=== PATIENT | male | born 1980 | race Caucasian/White ===

== ENCOUNTER 2019-04-14 21:09 | Inpatient (IN) | payer MEDICARE, MEDICAID, OTHER ==
[~2019-04-14] VITALS: Ht 193 cm; Wt 85.1 kg
--- NOTE | 2019-04-14 21:24 | NUR ---
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 LAST BM 4 DAYS AGO, HAS BEEN TAKING LAXATIVES FOR PAST 4 DAYS. ATE DINNER TONIGHT. "X" TAYLOR ON PT'S ABD FROM INTERMEDIATE EMT'S MARKING PAIN SITES. [facility] INFECTION PREVENTION SPECIALIST'S PRESENT.
--- NOTE | 2019-04-14 21:26 | NUR ---
DR SEALS BS FOR EXAM. PT HANDCUFFED TO BED (WRISTS AND ANKLES).
[2019-04-14] MEDS ORDERED: ZYPREXA (21:30)
[2019-04-14] MEDS ORDERED: IBUPROFEN (21:30)
[2019-04-14] MEDS ORDERED: TRAZADONE (21:30)
[2019-04-14] MEDS ORDERED: MESALAMINE (21:30)
[2019-04-14] MEDS ORDERED: MORPHINE SULFATE 4 MG/ML, 1ML ONE ×2 (21:51→23:09)
[2019-04-14] MEDS ORDERED: ONDANSETRON 2MG/ML, 2ML ONE (21:51)
[2019-04-14] MEDS ORDERED: FAMOTIDINE 20 MG/2 ML ONE (21:51)
[2019-04-14] MEDS ORDERED: FAMOTIDINE 20 MG/2 ML IV ONE (22:00)
[2019-04-14] MEDS ORDERED: SODIUM CHLORIDE FLUSH 10ML SYR IVF ONE (22:00)
[2019-04-14] MEDS ORDERED: MORPHINE SULFATE 4 MG/ML, 1ML IVPush PRN (22:00)
[2019-04-14] MEDS ORDERED: ONDANSETRON 2MG/ML, 2ML IVPush ONE (22:00)
[2019-04-14 22:03] LABS: BASOPHILS # (AUTO) 0.03 x10^3/uL (0-0.1); BASOPHILS % (AUTO) 0 % (0-1); EOSINOPHILS # (AUTO) 0.25 x10^3/uL (0-0.4); EOSINOPHILS % (AUTO) 3 % (1-7); LYMPHOCYTES # (AUTO) 1.84 x10^3/uL (1-3.4); LYMPHOCYTES % (AUTO) 22 % (22-44); MD NO; MEAN CORPUSCULAR HEMOGLOBIN 32.3 pg (27.5-34.5); MEAN CORPUSCULAR VOLUME 95.2 fL (81-97); MEAN PLATELET VOLUME 7.5 fL (7.4-10.4); MONOCYTES # (AUTO) 0.47 x10^3/uL (0.2-0.8); MONOCYTES % (AUTO) 6 % (2-9); NEUTROPHILS # (AUTO) 5.79 x10^3/uL (1.8-6.8); NEUTROPHILS % (AUTO) 69 % (42-75); PLATELET COUNT 249 x10^3/uL (130-400); RED BLOOD COUNT 4.07 x10^6/uL (4.38-5.82); RED CELL DISTRIBUTION WIDTH 13.9 % (9.4-14.8)
[2019-04-14 22:11] LABS: ALANINE AMINOTRANSFERASE 40 U/L (12-78); ALBUMIN 3.6 g/dL (3.4-5.0); ANION GAP 3 mmol/L (5-15); CALCIUM 8.5 mg/dL (8.5-10.1); CHLORIDE 107 mmol/L (98-107); CREATININE 1.12 mg/dL (0.7-1.3)
[2019-04-14 22:13] LABS: ALKALINE PHOSPHATASE 50 U/L (45-117); BILIRUBIN,TOTAL 0.2 mg/dL (0.2-1.0); TOTAL PROTEIN 6.8 g/dL (6.4-8.2)
[2019-04-14 22:24] LABS: MICROSCOPIC AUTO
[2019-04-14 22:25] LABS: CULTURE INDICATED? YES
[2019-04-14] MEDS ORDERED: OMNIPAQUE 350 MG/ML, 100ML BOTTLE ONE (22:43)
--- NOTE | 2019-04-14 23:08 | NUR ---
DR SELF SPOKE WITH DR SIMS
--- NOTE | 2019-04-14 23:10 | NUR ---
PT CARE TRANSFERRED TO RIGOBERTO CROWLEY.
--- NOTE | 2019-04-14 23:11 | NUR ---
DR SELF SPOKE WITH DR FLORENCE
--- NOTE | 2019-04-14 23:20 | NUR ---
CALLED IN ENDO / SPOKE WITH RHYS
[2019-04-14] MEDS ORDERED: morphine SULFATE 10 MG/ML, 1ML IVPush ONE (23:30)
--- NOTE | 2019-04-14 23:39 | NUR ---
NG TUBE PLACED INTO RIGHT NARE PER DR. SELF ORDER. AUSCULTAION OF AIR BOLUS BUT NO RETURN OF GASTIC ASPIRATE. DR. SELF AT BS AND PER HIM TUBE REMOVED; NO TO BE REPLACED AT THIS TIME PER DR. SELF. PT. PLACED ON 2L O2 VIA NC FOR DESAT TO 90%, IMMEDIATE INCREASE TO 95% WITH THIS. PT. WAS MOVED TO TRAUMA 2 AT THIS TIME FOR PEPARATION OF SCOPE BY GI. CONTINUOUS PULSE OX, B/P, AND HEART MONITORS IN PLACE. CALL LIGTH IN REACH. 2 OFFICERS AT BS.
--- NOTE | 2019-04-14 23:57 | NUR ---
RUKHSANA VEGA AT TO DISCUSS PROCEDURE WITH PT.
[2019-04-15] MEDS ORDERED: MIDAZOLAM 1 MG/ML, 2ML ONE ×2 (00:02→00:04)
[2019-04-15] MEDS ORDERED: FENTANYL PF 100 MCG/2ML ONE (00:02)
--- NOTE | 2019-04-15 00:58 | NUR ---
SEE PROCEDURAL SEDATION PACKET FOR DETAILS OF PROCEDURES. RECTAL DECOMPRESSION TUBE IN PLACE WITH ANDRADE BAG PLACED TO DOWN DRAINAGE. TUBE PLACED BY DR. NAMAN ROMERO PROCEDURE. POST-PROCEDURE PT. VOIDED VIA URINAL 1,000 ML OF CLEAR YELLOW URINE. PT. DENIES ANY PAIN OR DISCOMFORT AT THIS TIME. ALL MONITORS/SAFETY MEASURES REMAIN IN PLACE. 2 OFFICERS REMAIN AT BS.
--- NOTE | 2019-04-15 01:18 | NUR ---
REPORT TO RIGOBERTO MUÑOZ. FLOOR READY FOR PT. TRANSPORT.
[2019-04-15] MEDS ORDERED: FENTANYL PF 100 MCG/2ML IVPush ONE (01:30)
[2019-04-15] MEDS ORDERED: MIDAZOLAM 1 MG/ML, 2ML IVPush ONE (01:30)
[2019-04-15] MEDS ORDERED: ICN MIDAZOLAM 0.5 MG/ML IV IVPush ONE (01:30)
[2019-04-15 01:45] VITALS: BP 105/59
[2019-04-15] MEDS: ACETAMINOPHEN 325 MG TABLET PO PRN ×3 (02:32→19:15)
[2019-04-15] MEDS: morphine SULFATE 10 MG/ML, 1ML IVPush PRN ×6 (02:32→20:09)
[2019-04-15] MEDS: ONDANSETRON 2MG/ML, 2ML IVPush PRN ×2 (04:39→14:57)
[2019-04-15 07:10] VITALS: BP 111/60
[2019-04-15] MEDS ORDERED: GOLYTELY 4,000ML ORAL.SOL PO ONE (12:00)
[2019-04-15 13:20] VITALS: BP 120/83
[2019-04-15] MEDS ORDERED: TRAZ-137 PO (15:46)
[2019-04-15] MEDS ORDERED: OLAN5TAB3 PO (15:48)
[2019-04-15] MEDS ORDERED: OLAN15TA3 PO (15:48)
[2019-04-15 20:00] VITALS: BP 101/63
[2019-04-15] MEDS: OLANZAPINE 5 MG TABLET PO SCH (21:00)
[2019-04-15] MEDS: TRAZODONE 100MG TABLET PO SCH (21:00)
[2019-04-16 02:00] VITALS: BP 95/59
[2019-04-16] MEDS: ONDANSETRON 2MG/ML, 2ML IVPush PRN (02:15)
[2019-04-16] MEDS: ACETAMINOPHEN 325 MG TABLET PO PRN ×2 (02:15→06:40)
[2019-04-16 05:19] LABS: BASOPHILS # (AUTO) 0.03 x10^3/uL (0-0.1); BASOPHILS % (AUTO) 0 % (0-1); EOSINOPHILS # (AUTO) 0.29 x10^3/uL (0-0.4); EOSINOPHILS % (AUTO) 4 % (1-7); LYMPHOCYTES # (AUTO) 1.86 x10^3/uL (1-3.4); LYMPHOCYTES % (AUTO) 26 % (22-44); MD NO; MEAN CORPUSCULAR HEMOGLOBIN 31.9 pg (27.5-34.5); MEAN CORPUSCULAR HGB CONC 32.9 g/dL (33.2-36.2); MEAN PLATELET VOLUME 7.4 fL (7.4-10.4); MONOCYTES # (AUTO) 0.45 x10^3/uL (0.2-0.8); MONOCYTES % (AUTO) 6 % (2-9); NEUTROPHILS # (AUTO) 4.66 x10^3/uL (1.8-6.8); NEUTROPHILS % (AUTO) 64 % (42-75); PLATELET COUNT 237 x10^3/uL (130-400); RED BLOOD COUNT 3.92 x10^6/uL (4.38-5.82); RED CELL DISTRIBUTION WIDTH 13.8 % (9.4-14.8)
[2019-04-16 05:27] LABS: CHLORIDE 107 mmol/L (98-107)
[2019-04-16 05:35] LABS: ANION GAP 1 mmol/L (5-15); CALCIUM 8.3 mg/dL (8.5-10.1); CREATININE 0.99 mg/dL (0.7-1.3)
[2019-04-16 07:38] VITALS: BP 100/50
[2019-04-16] MEDS: OLANZAPINE 5 MG TABLET PO SCH ×2 (08:33→21:08)
[2019-04-16] MEDS ORDERED: IBUPROFEN 200 MG TABLET ONE (11:26)
[2019-04-16] MEDS: IBUPROFEN 200 MG TABLET PO PRN ×2 (11:30→19:17)
[2019-04-16 12:46] VITALS: BP 103/63
[2019-04-16 20:00] VITALS: BP 113/70
[2019-04-16] MEDS: TRAZODONE 100MG TABLET PO SCH (21:08)
[2019-04-17 01:42] VITALS: BP 99/61
[2019-04-17] MEDS: IBUPROFEN 200 MG TABLET PO PRN (05:03)
[2019-04-17 05:29] LABS: BASOPHILS # (AUTO) 0.02 x10^3/uL (0-0.1); BASOPHILS % (AUTO) 1 % (0-1); EOSINOPHILS # (AUTO) 0.17 x10^3/uL (0-0.4); EOSINOPHILS % (AUTO) 4 % (1-7); LYMPHOCYTES # (AUTO) 1.65 x10^3/uL (1-3.4); LYMPHOCYTES % (AUTO) 36 % (22-44); MD NO; MEAN CORPUSCULAR HEMOGLOBIN 32.3 pg (27.5-34.5); MEAN CORPUSCULAR HGB CONC 33.6 g/dL (33.2-36.2); MEAN CORPUSCULAR VOLUME 96.1 fL (81-97); MEAN PLATELET VOLUME 7.7 fL (7.4-10.4); MONOCYTES # (AUTO) 0.29 x10^3/uL (0.2-0.8); MONOCYTES % (AUTO) 6 % (2-9); NEUTROPHILS # (AUTO) 2.42 x10^3/uL (1.8-6.8); NEUTROPHILS % (AUTO) 53 % (42-75); PLATELET COUNT 221 x10^3/uL (130-400); RED BLOOD COUNT 3.84 x10^6/uL (4.38-5.82); RED CELL DISTRIBUTION WIDTH 14.2 % (9.4-14.8)
[2019-04-17 05:39] LABS: ANION GAP 3 mmol/L (5-15); CHLORIDE 112 mmol/L (98-107)
[2019-04-17] MEDS: OLANZAPINE 5 MG TABLET PO SCH (07:48)
[2019-04-17 09:43] VITALS: BP 120/70
[2019-04-17 14:07] VITALS: BP 106/65
[2019-04-17] MEDS ORDERED: ACET325T26 PO (16:22)
== END 2019-04-17 18:30 | disposition home or self-care (01) | DRG 345 ==
LOC: ED 04-15 01:12 → EDIP 04-15 01:33 → 4NE 04-15 01:39
PROVIDERS: ADMIT Internal Medicine; ATTEND Internal Medicine
PROC: 0D9N8ZZ Drainage of Sigmoid Colon, Via Natural or Artificial Opening Endoscopic (ICD-10-PCS; principal; 2019-04-15)
DX: K56.2 Volvulus (principal); K51.90 Ulcerative colitis, unspecified, without complications; Z88.0 Allergy status to penicillin; D64.9 Anemia, unspecified; F12.90 Cannabis use, unspecified, uncomplicated; F17.210 Nicotine dependence, cigarettes, uncomplicated; K56.609 Unspecified intestinal obstruction, unspecified as to partial versus complete obstruction
CPT/HCPCS: 36415; 74018; 74177; 80048; 80053; 81001; 83605; 83690; 85025; 87086; 96374; 96375; 96376; 99291; G0378; J2405; J3010; Q9967; C1729; J2270; J3490